=== PATIENT | female | born 1985 | race Native Hawaiian/Other Pacific Islander ===

== ENCOUNTER 2018-04-01 20:41 | Emergency (ER) | payer OTHER ==
[~2018-04-01] VITALS: Ht 157.5 cm; Wt 76.9 kg
[~2018-04-01 20:41] MED LIST: BENADRYL ALLERG25 MG PO; COLACE100 MG PO; ENDOCET 5-3251 EACH PO; HUMULIN N100 UNIT/2 SC; HUMULIN SC; HYDROCHLOROTHIA25 MG PO; IBUPROFEN800 MG PO; K-DUR10 ME2 PO; KEFLEX500 MG PO; LABETALOL HCL100 MG PO; MOTRIN800 MG PO; Motrin PO; NAPROSYN500 MG PO; NATALCARE RX1 TABLE1 PO; NOVOLIN NPH,HU1 UNIT SC; NOVOLOG PE100 UNITS/ SC; PRENATAL TABLE1 EACH PO; Percocet 5/325,Endoc PO; TRAMADOL HCL50 MG PO; TYLENOL REGULA325 MG PO; VALIUM5 MG PO; VITAMIN D22000 UNIT PO; [UNRECOGNIZED DRUG - OTHER] SC
[2018-04-01 21:51] LABS: HEMATOCRIT 36.4 % (36.0-46.0); HEMOGLOBIN 12.8 G/DL (11.9-15.5); MCH 31.6 PG (29.0-34.0); MCHC 35.2 G/DL (30.0-36.0); MCV 89.9 FL (83-99); PLATELET COUNT 245 K/uL (156-360); RBC DIS.WIDTH-SD 39.5 % (39-53); RED BLOOD COUNT 4.05 M/uL (3.80-5.20); WHITE BLOOD COUNT 10.5 K/uL (4.1-10.2)
[2018-04-01 22:11] LABS: CHLORIDE 103 mEq/L (99-109); POTASSIUM 3.7 mEq/L (3.7-5.4); SODIUM 140 mEq/L (136-147)
[2018-04-01 22:13] LABS: GLUCOSE 103 mg/dL (70-99)
[2018-04-01 22:17] LABS: CREATININE 0.7 mg/dL (0.6-1.3); GFR ESTIMATE (CALCULATED) > 59 mL/min/
[2018-04-01 22:18] LABS: UREA NITROGEN (BUN) 14 mg/dL (9-23)
[2018-04-01 22:25] LABS: TROP-I INTERPRETATION NEGATIVE; TROPONIN-I < 0.01 ng/mL (0.0-0.30)
[2018-04-01 23:07] VITALS: BP 126/76
== END 2018-04-01 23:16 | disposition home or self-care (01) ==
LOC: EME 20:41
PROVIDERS: Emergency Medicine
DX: R07.9 Chest pain, unspecified (principal); M50.30 Other cervical disc degeneration, unspecified cervical region
CPT/HCPCS: 71046; 80048; 84484; 85027; 93005; 99281; 99285